=== PATIENT | male | born 1990 | race Hispanic/Latino ===

== ENCOUNTER 2023-08-21 12:32 | Outpatient (CLI) | payer OTHER | END 2023-08-21 12:33 | disposition home or self-care (01) | LOC: CSHRAD 12:32 | PROVIDERS: ATTEND Surgery | DX: S22.009D Unspecified fracture of unspecified thoracic vertebra, subsequent encounter for fracture with routine healing (principal); S22.030D Wedge compression fracture of third thoracic vertebra, subsequent encounter for fracture with routine healing; S22.040D Wedge compression fracture of fourth thoracic vertebra, subsequent encounter for fracture with routine healing; S22.050D Wedge compression fracture of T5-T6 vertebra, subsequent encounter for fracture with routine healing; Z98.1 Arthrodesis status; S32.011A Stable burst fracture of first lumbar vertebra, initial encounter for closed fracture | CPT/HCPCS: 72072; 72100 ==